=== PATIENT | male | born 1990 | race Caucasian/White ===

== ENCOUNTER 2017-01-04 14:11 | Emergency (ER) | payer BC ==
[2017-01-04 14:46] VITALS: BP 124/79
[2017-01-04] MEDS ORDERED: Lidocaine 2% PF* 10 ML AMP INJ ONE (15:54)
[2017-01-04] MEDS ORDERED: Lidocaine 2% PF * 5 ML VIAL ONE (16:02)
--- NOTE | 2017-01-04 18:55 | UC ---
kelly Fuller Timothy, scribed for Nae Garcia MD on 01/04/17 at 1540 . Skin Complaint HPI - HPI Summary HPI Summary: Ramakrishna Chua is a 26 yo male presenting to [facility] with an abscess on his coccyx , in 8 burning pain with no drainage. His PMHx includes bipolar disorder, hydrocele and tobacco use. - History of Current Complaint Chief Complaint: UCSkin Stated Complaint: PAINFUL LUMP ABOVE BUTTOCKS Hx Obtained From: Patient Onset/Duration: Sudden Onset, Lasting Days, Still Present Timing: Constant Onset Severity: Moderate Current Severity: Moderate Pain Intensity: 8 Pain Scale Used: 0-10 Numeric Location: Discrete - coccyx Character: Swelling, Pain, Raised, Painful Aggravating: Touch Alleviating: Nothing Associated Signs & Symptoms: Positive: Tenderness. Negative: Fever, Drainage - Allergy/Home Medications Allergies/Adverse Reactions: Allergies Allergy/AdvReac Type Severity Reaction Status Date / Time Sulfa Drugs Allergy Mild Nausea Verified 04/21/13 19:08 Penicillins Allergy Rash And Verified 01/04/17 14:46 Itching Home Medications: Home Medications risperiDONE TAB* [Risperdal*] 1 mg PO DAILY 01/04/17 [History Confirmed 01/04/17 ] Review of Systems Constitutional: Negative Skin: Other - coccyx abscess Eyes: Negative ENT: Negative Respiratory: Negative Cardiovascular: Negative Gastrointestinal: Negative Genitourinary: Negative Motor: Negative Neurovascular: Negative Musculoskeletal: Negative Neurological: Negative Psychological: Negative All Other Systems Reviewed And Are Negative: Yes PMH/Surg Hx/FS Hx/Imm Hx Endocrine History Of: Denies: Diabetes, Thyroid Disease Cardiovascular History Of: Denies: Cardiac Disorders, Hypertension Respiratory History Of: Denies: COPD, Asthma GI/ History Of: Denies: Ulcer Psychological History Of: Reports: Bipolar Disorder - Surgical History Surgical History: Yes Surgery Procedure, Year, and Place: hydrocele - Family History Known Family History: Positive: Other - EtOH - Social History Occupation: Employed Full-time Lives: With Family Alcohol Use: Weekly Substance Use Type: None Smoking Status (MU): Current Some Day Smoker Physical Exam Triage Information Reviewed: Yes Appearance: Well-Appearing, Well-Nourished, Pain Distress Vital Signs: Initial Vital Signs Temp 97.9 F 01/04/17 14:38 Pulse 84 01/04/17 14:38 Resp 20 01/04/17 14:38 BP 124/79 01/04/17 14:38 Pulse Ox 98 01/04/17 14:38 Vital Signs Reviewed: Yes Eyes: Positive: Conjunctiva Clear ENT: Positive: Hearing grossly normal. Negative: Muffled/hoarse voice Neck: Positive: Supple, Nontender Respiratory: Positive: Lungs clear, Normal breath sounds, No respiratory distress Cardiovascular: Positive: RRR, No Murmur, Pulses Normal, Brisk Capillary Refill Abdomen Description: Positive: Nontender, Soft Bowel Sounds: Positive: Present Musculoskeletal: Positive: Strength Intact, ROM Intact Neurological: Positive: Alert, Muscle Tone Normal Psychological Exam: Normal Skin: Positive: Other - 3cm red, fluctuant pilonidal cyst at the top of the gluteal crease on the left Re-Evaluation - Re-Evaluation First Eval Re-Evaluation Time: 16:58 Change: Improved Comment: Pt was given further instructions and had any additional questions S/P procedure answered. Course/Dx - Course Course Of Treatment: Ramakrishna Chua is a 26 yo male presenting to [facility] with an abscess on his coccyx in 8/10 burning pain. His abscess was incised and drained with no complications. After clinical examination and performance of the procedure he will be discharged home with pilonidal cyst and abscess I&D with appropriate instructions. - Differential Diagnoses - Skin Complaint Differential Diagnoses: Abscess - incision and drainage, Cellulitis, Other - pilonidal cyst - Diagnoses Provider Diagnoses: pilonidal cyst, abscess I&D Procedures - Procedure Summary Procedure Summary: Procedure began at 1625. Pilonidal cyst was incised and drained with copious blood and pus with no complications using sterile technique. Pt tolerated procedure well. - Incision and Drainage Site: pilonidal cyst Anesthesia: Lidocaine - 2% Instrument(s): Scalpel - #11 Packing: Gauze - .25 inch iodoform Discharge - Discharge Plan Condition: Stable Disposition: HOME Prescriptions: Cephalexin CAP* [Keflex 500 CAP*] 500 mg PO QID #40 cap Patient Education Materials: Pilonidal Cyst (ED), Abscess (ED) Referrals: Sonu Helton MD [Primary Care Provider] - 2 Days Additional Instructions: Your abscess is packed with 1/4 inch odoform gauze. The wound needs to be checked in 2 days and we may remove the packing. Take the antibiotic as directed. Go to the emergency room or return to urgent care if you have any new or worsening symptoms. The documentation as recorded by the kelly thorne Timothy accurately reflects the service I personally performed and the decisions made by me, Nae Garcia MD.
== END 2017-01-04 17:00 | disposition home or self-care (01) ==
LOC: UCEAST 14:11
DX: L05.01 Pilonidal cyst with abscess (principal); Z88.0 Allergy status to penicillin; Z88.2 Allergy status to sulfonamides; F31.9 Bipolar disorder, unspecified; Z72.0 Tobacco use
CPT/HCPCS: 10080; 87070; 87205; 87640; 87641; 99212; G0463; J2001

== ENCOUNTER 2018-10-13 09:45 | Emergency (ER) | payer BC, OTHER ==
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
[2018-10-13 12:39] VITALS: BP 135/72
== END 2018-10-13 12:22 | disposition short-term general hospital (02) ==
LOC: UCEAST 09:45
DX: S06.5X9A Traumatic subdural hemorrhage with loss of consciousness of unspecified duration, initial encounter (principal); S02.2XXA Fracture of nasal bones, initial encounter for closed fracture; F17.200 Nicotine dependence, unspecified, uncomplicated; F31.9 Bipolar disorder, unspecified; Z88.2 Allergy status to sulfonamides; Z88.0 Allergy status to penicillin; Z79.899 Other long term (current) drug therapy; V89.2XXA Person injured in unspecified motor-vehicle accident, traffic, initial encounter; Y92.9 Unspecified place or not applicable
CPT/HCPCS: 70450; 70486; 72125; 99213; G0463

== ENCOUNTER 2018-10-13 13:00 | Observation (INO) | payer OTHER ==
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
[2018-10-13 13:42] LABS: ABS Basophils 0 10^3/ul (0-0.2); ABS Eosinophils 0 10^3/ul (0-0.6); ABS Lymphocytes 2.1 10^3/ul (1.0-4.8); ABS Nucleated RBC 0 10^3/ul; Eosinophil % 0.2 %; Hematocrit 46 % (42-52); Hemoglobin 15.8 g/dl (14.0-18.0); Lymphocyte % 13.6 %; Mean Corpuscular HGB Conc 35 g/dl (31-36); Mean Corpuscular Hemoglobin 30 pg (27-31); Mean Corpuscular Volume 87 fL (80-94); Mean Platelet Volume 7.5 fL (7.4-10.4); Nucleated Red Blood Cells % 0; Platelet Count 311 10^3/ul (150-450); Red Cell Distribution Width 13 % (10.5-15); White Blood Count 15.1 10^3/ul (3.5-10.8)
[2018-10-13 13:50] LABS: INR 0.89 (0.77-1.02)
[2018-10-13 14:07] LABS: ALT 36 U/L (7-52); AST 48 U/L (13-39); Albumin 5.2 g/dL (3.2-5.2); Albumin/Globulin Ratio 1.9 (1-3); Alkaline Phosphatase 67 U/L (34-104); Anion Gap 11 mmol/L (2-11); BUN/Creatinine Ratio 13.6 (8-20); Blood Urea Nitrogen 11 mg/dL (6-24); CO2 Carbon Dioxide 23 mmol/L (22-32); Calcium 9.9 mg/dL (8.6-10.3); Chloride 104 mmol/L (101-111); EGFR African American 139.4 (>60); EGFR Non-African American 115.2 (>60); Globulin 2.8 g/dL (2-4); Glucose 98 mg/dL (70-100); Potassium 3.8 mmol/L (3.5-5.0); Sodium 138 mmol/L (135-145)
[2018-10-13] MEDS ORDERED: Acetaminophen TAB* 325 MG PO PRN (14:13)
[2018-10-13] MEDS ORDERED: Iohexol 300* (CONTRAST) 10 ML SDV IV ONE (14:17)
[2018-10-13 14:43] LABS: Alcohol < 10 mg/dL (<10)
[2018-10-13] MEDS ORDERED: Tetan/Diph/Pertus SYR(Tdap)* 0.5 ML SYR(BOOSTRIX) use SYR IM ONE (14:48)
[2018-10-13 15:57] LABS: Urine Appearance Clear; Urine Bilirubin Negative (Negative); Urine Blood Negative (Negative); Urine Color Yellow; Urine Glucose Negative (Negative); Urine Ketones Trace (Negative); Urine Nitrite Negative (Negative); Urine Protein Negative (Negative); Urine Specific Gravity 1.024 (1.010-1.030); Urine Urobilinogen Negative (Negative)
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
[2018-10-13] MEDS ORDERED: Ondansetron ODT TAB* 4 MG PO PRN (18:48)
[2018-10-13] MEDS ORDERED: Citalopram TAB* 10 MG PO SCH (20:00)
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
[2018-10-14] MEDS ORDERED: Divalproex DR TAB(*) 250 MG PO SCH (09:00)
[2018-10-14 10:04] VITALS: BP 129/79
== END 2018-10-14 10:00 | disposition home or self-care (01) ==
LOC: ED 13:00 → SSU 14:13
PROVIDERS: ADMIT Neurological Surgery; ATTEND Neurological Surgery
DX: S00.81XA Abrasion of other part of head, initial encounter (principal); S09.90XA Unspecified injury of head, initial encounter; V49.9XXA Car occupant (driver) (passenger) injured in unspecified traffic accident, initial encounter; Y92.9 Unspecified place or not applicable; F31.9 Bipolar disorder, unspecified; F41.9 Anxiety disorder, unspecified; F10.21 Alcohol dependence, in remission; Z88.0 Allergy status to penicillin; Z88.2 Allergy status to sulfonamides; F17.210 Nicotine dependence, cigarettes, uncomplicated
CPT/HCPCS: 36415; 70450; 71260; 74177; 80053; 80320; 81003; 84484; 85025; 85610; 85730; 90471; 90715; 93005; 99284; A9270-GY; G0378; G0480; Q9967